=== PATIENT | female | born 1935 | race African-American/Black ===

== ENCOUNTER 2017-07-13 12:20 | Inpatient (IN) | payer MEDICARE ==
[~2017-07-13] VITALS: Ht 170.2 cm; Wt 61.0 kg
[~2017-07-13 12:20] MED LIST: ASPI81 PO; CARD240C6 PO; DYAZ37.52 PO; NAPR550 PO
[2017-07-13] MEDS ORDERED: SODIUM CHLOR 0.9% 1000 ML INJ 1,000 ML IV ONE ×2 (12:31→13:45)
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
[2017-07-13 13:01] VITALS: BP 164/86; PULSE 99; RESP 16; TEMP 98.1; O2SAT 98
[2017-07-13 13:10] LABS: AUTOMATED NEUTROPHIL # 9.1 TH/MM3 (1.8-7.7); BASOPHIL % 0.3 % (0.0-2.0); EOSINOPHIL % 0.1 % (0.0-4.0); HEMO FLAGS DIFF FINAL; LYMPH % 11.2 % (9.0-44.0); LYMPHOCYTE # 1.2 TH/MM3 (1.0-4.8); MEAN CELL VOLUME 81.3 FL (80.0-100.0); MEAN CORPUSCULAR HEMOGLOBIN 26.4 PG (27.0-34.0); MEAN CORPUSCULAR HGB CONC 32.4 % (32.0-36.0); MONO % 6.9 % (0.0-8.0); NEUT % 81.5 % (16.0-70.0); PLATELET COUNT 245 TH/MM3 (150-450); RED BLOOD COUNT 5.54 MIL/MM3 (4.00-5.30); RED CELL DISTRIBUTION WIDTH 15.2 % (11.6-17.2); WHITE BLOOD COUNT 11.1 TH/MM3 (4.0-11.0)
--- NOTE | 2017-07-13 13:17 | RADRPT ---
EXAM DATE/TIME: 07/13/2017 12:58 [facility] COMPARISON: No previous studies available for comparison. INDICATIONS : Altered mental status for one day. RADIATION DOSE: 45.79 CTDIvol (mGy) MEDICAL HISTORY : Hypertension. SURGICAL HISTORY : Hysterectomy. ENCOUNTER: Initial ACUITY: 1 day PAIN SCALE: 3/10 LOCATION: Bilateral cranial TECHNIQUE: Multiple contiguous axial images were obtained of the head. Using automated exposure control and adj ustment of the mA and/or kV according to patient size, radiation dose was kept as low as reasonably a chievable to obtain optimal diagnostic quality images. DICOM format image data is available electro nically for review and comparison. FINDINGS: CEREBRUM: The ventricles are normal for age. No evidence of midline shift, mass lesion, hemorrhage or acute in farction. No extra-axial fluid collections are seen. POSTERIOR FOSSA: The cerebellum and brainstem are intact. The 4th ventricle is midline. The cerebellopontine angle i s unremarkable. EXTRACRANIAL: The visualized portion of the orbits is intact. SKULL: The calvaria is intact. No evidence of skull fracture. CONCLUSION: Normal examination for a patient of this age. Dl Ceron MD on July 13, 2017 at 13:14 Board Certified Radiologist. This report was verified electronically.
--- NOTE | 2017-07-13 13:23 | RADRPT ---
EXAM DATE/TIME: 07/13/2017 12:46 [facility] COMPARISON: No previous studies available for comparison. INDICATIONS : Fever and cough. MEDICAL HISTORY : None. SURGICAL HISTORY : None. ENCOUNTER: Initial ACUITY: 1 day PAIN SCORE: Non-responsive. LOCATION: Bilateral chest FINDINGS: A single view of the chest demonstrates the lungs to be symmetrically aerated without evidence of mas s, infiltrate or effusion. The cardiomediastinal contours are unremarkable. Osseous structures are intact. CONCLUSION: No acute disease. Dl Ceron MD on July 13, 2017 at 13:20 Board Certified Radiologist. This report was verified electronically.
[2017-07-13] MEDS ORDERED: MAXZTAB PO (13:31)
[2017-07-13] MEDS ORDERED: VERA120T3 PO (13:31)
[2017-07-13] MEDS ORDERED: LOVA20TA PO (13:31)
[2017-07-13 13:32] LABS: APTT (PATIENT) 22.6 SEC (24.3-30.1); INTERNATIONAL NORMALIZED RATIO 1.1 RATIO; PROTHROMBIN TIME - PATIENT 12.7 SEC (9.8-11.6)
[2017-07-13 14:37] LABS: ANION GAP 13 MEQ/L (5-15); AST (GOT) 49 U/L (15-37); BICARBONATE 23.8 MEQ/L (21.0-32.0); BLOOD UREA NITROGEN 73 MG/DL (7-18); CHLORIDE 116 MEQ/L (98-107); GLOMERULAR FILTRATION RATE 38 ML/MIN (>89); MAGNESIUM 2.7 MG/DL (1.5-2.5); SODIUM (NA) 153 MEQ/L (136-145)
[2017-07-13 14:38] LABS: POTASSIUM 4.4 MEQ/L (3.5-5.1)
[2017-07-13 14:52] LABS: ALKALINE PHOSPHATASE 86 U/L (45-117); ALT (GPT) 43 U/L (10-53); CREATINE KINASE 657 U/L (26-192); TOTAL BILIRUBIN ADULT 0.8 MG/DL (0.2-1.0)
[2017-07-13 15:05] LABS: LACTIC ACID GHOST NOT REPORTABLE
[2017-07-13 15:05] LABS: CKMB 10.2 NG/ML (0.5-3.6)
[2017-07-13 15:13] LABS: BLOOD, URINE NEG (NEG); GLUCOSE,URINE NEG (NEG); HYALINE CAST, URINE 18 /lpf (RARE); KETONE, URINE 10 mg/dL (NEG); MUCUS URINE FEW /lpf (OCC); NITRITE,URINE NEG (NEG); SQUAMOUS EPITHELIAL CELL URINE 1 /hpf (0-5); URINE COLOR YELLOW (YELLW/STRAW)
[2017-07-13 15:16] LABS: COMMENT (UR) CATH-CULT NOT IND; CULTURE IF INDICATED CATH CULTURE NOT IND
[2017-07-13 15:32] VITALS: BP 145/62; PULSE 95; RESP 18; O2SAT 97
--- NOTE | 2017-07-13 18:51 | RADRPT ---
EXAM DATE/TIME: 07/13/2017 18:00 [facility] COMPARISON: CT BRAIN W/O CONTRAST, July 13, 2017, 12:58. INDICATIONS : Altered mental status. MEDICAL HISTORY : Hypertension. SURGICAL HISTORY : Total knee replacement, right. Appendectomy. Hysterectomy. ENCOUNTER: Initial ACUITY: 1 day PAIN SCORE: 0/10 LOCATION: cranial TECHNIQUE: Multiplanar, multisequence MRI of the brain was performed without contrast. FINDINGS: CEREBRUM: The ventricles, sulci, and basal cisterns are prominent, characteristic of moderate central cortical atrophy.. No evidence of midline shift, mass lesion, hemorrhage or acute infarction. No extraaxial fluid collections are seen. The pituitary gland and suprasellar cistern are normal in configuration. WHITE MATTER: No significant signal abnormalities are seen in the white matter. POSTERIOR FOSSA: The cerebellum and brainstem are intact. The 4th ventricle is midline. The cerebellopontine angle is unremarkable. The cerebellar tonsils are normal in position. There is soft tissue thickening poste rior to the dens and the anterior arch of C1 is not identified, but this level is only included on sa gittal images. DIFFUSION IMAGING: No focal areas of restricted diffusion are seen. No evidence of acute infarction. EXTRACRANIAL: The visualized portions of the orbits and paranasal sinuses are unremarkable. CONCLUSION: 1. Moderate central and cortical atrophy. No evidence of acute stroke or hemorrhage. 2. Soft tissue thickening posterior to the dens which narrows the spinal canal, but does not cause co rd compression. Recommend further evaluation of the C1 and C2 level with thin section CT. Steven Licea MD on July 13, 2017 at 18:46 Board Certified Radiologist. This report was verified electronically.
[2017-07-13 20:00] VITALS: BP 116/60; PULSE 106; RESP 17; TEMP 98.3; O2SAT 97
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
[2017-07-13] MEDS ORDERED: SODIUM CHLOR 0.9% 1000 ML INJ 1,000 ML IV SCH (22:30)
--- NOTE | 2017-07-13 23:39 | EKG ---
Date Performed: 07/13/2017 Time Performed: 14:17:46 PTAGE: 81 years EKG: Sinus rhythm NONSPECIFIC T-WAVE ABNORMALITY BORDERLINE ECG PREVIOUS TRACING : 07/13/2017 14.16 Compared to prior tracing no significant change DOCTOR: Xiang Parikh Interpretating Date/Time 07/16/2017 06:51:51
--- NOTE | 2017-07-13 23:51 | RADRPT ---
EXAM DATE/TIME: 07/13/2017 23:27 [facility] COMPARISON: No previous studies available for comparison. INDICATIONS : Trauma; fall. Contusion of left side of face. RADIATION DOSE: 41.45 CTDIvol (mGy) MEDICAL HISTORY : Hypertension. Gastroesophageal reflux disease. SURGICAL HISTORY : Hysterectomy. ENCOUNTER: Initial ACUITY: 1 day PAIN SCORE: 4/10 LOCATION: facial TECHNIQUE: Volumetric scanning of the facial bones was performed. Using automated exposure control and adjustme nt of the mA and/or kV according to patient size, radiation dose was kept as low as reasonably achiev able to obtain optimal diagnostic quality images. DICOM format image data is available electronicall y for review and comparison. FINDINGS: ORBITS: The orbital and infraorbital osseous structures are intact. The retroconal structures have a normal configuration. No radiopaque foreign bodies are seen. NASAL BONE: The nasal bone and maxillary spine are intact ZYGOMATIC ARCHES: Symmetric without evidence of fracture. SINUSES: The maxillary, ethmoid and frontal sinuses are intact. No air-fluid levels seen. There is opacificat ion of multiple ethmoid air cells. NASAL CAVITY: The nasal septum is intact and midline. The lacrimal ducts are intact. SOFT TISSUES: No radiopaque foreign bodies seen. There is mild soft tissue swelling of the left side of the face. INTRACRANIAL: No intracranial air seen. CRIBIFORM PLATE: Grossly intact. CONCLUSION: 1. Mild soft tissue swelling of left side of the face with no acute fracture or malalignment. 2. Opacification of several ethmoidal air cells. Simone Hough MD on July 13, 2017 at 23:48 Board Certified Radiologist. This report was verified electronically.
[2017-07-14] VITALS (7 sets, daily range): BP systolic 124–147; BP diastolic 58–65; PULSE 75–88; RESP 16–20; TEMP 97.4–99.2; O2SAT 96–97
[2017-07-14 05:47] LABS: AUTOMATED NEUTROPHIL # 5.4 TH/MM3 (1.8-7.7); BASOPHIL % 0.3 % (0.0-2.0); EOSINOPHIL # 0.1 TH/MM3 (0-0.4); EOSINOPHIL % 0.8 % (0.0-4.0); HEMATOCRIT 34.6 % (35.0-46.0); HEMO FLAGS DIFF FINAL; LYMPH % 20.1 % (9.0-44.0); LYMPHOCYTE # 1.6 TH/MM3 (1.0-4.8); MEAN CELL VOLUME 82.3 FL (80.0-100.0); MEAN CORPUSCULAR HEMOGLOBIN 27.1 PG (27.0-34.0); MEAN CORPUSCULAR HGB CONC 32.9 % (32.0-36.0); MONO % 10.5 % (0.0-8.0); NEUT % 68.3 % (16.0-70.0); PLATELET COUNT 158 TH/MM3 (150-450); RED CELL DISTRIBUTION WIDTH 15.2 % (11.6-17.2); WHITE BLOOD COUNT 7.9 TH/MM3 (4.0-11.0)
[2017-07-14 06:22] LABS: ALKALINE PHOSPHATASE 74 U/L (45-117); ALT (GPT) 31 U/L (10-53); ANION GAP 11 MEQ/L (5-15); AST (GOT) 28 U/L (15-37); BICARBONATE 23.7 MEQ/L (21.0-32.0); BLOOD UREA NITROGEN 51 MG/DL (7-18); CHLORIDE 121 MEQ/L (98-107); CREATINE KINASE 434 U/L (26-192); GLOMERULAR FILTRATION RATE 66 ML/MIN (>89); POTASSIUM 3.2 MEQ/L (3.5-5.1); TOTAL BILIRUBIN ADULT 0.7 MG/DL (0.2-1.0)
[2017-07-14 06:26] LABS: SODIUM (NA) 156 MEQ/L (136-145)
[2017-07-14 06:45] LABS: CKMB 5.5 NG/ML (0.5-3.6)
[2017-07-14] MEDS: D5W + KCL 20 MEQ INJ 1,000 ML IV SCH ×3 (07:37→18:31)
[2017-07-14] MEDS: ACETAMINOPHEN 325 MG TAB PO PRN (13:15)
--- NOTE | 2017-07-14 13:47 | MB ---
cc: MICHEL HURTADO M.D. DATE OF CONSULTATION: 07/14/2017. REASON FOR CONSULTATION: Mental status change. HISTORY OF PRESENT ILLNESS: Ms. Garcia is a very pleasant 81-year-old woman normally functioning at a very high level. Her family was trying to reach her for several days by calling her and there was no response and they felt that was very unusual for her as she is usually very responsive. A neighbor came to her house therefore to check on her and found that she was on the floor in a sitting position. Fecal matter was noted throughout the home and the home was unkempt, which is very atypical for her. Her family member also states that she was concerned that somebody was trying to break into the house and thought she was having delusions as there was no evidence of any break-in or attempt to break in. She was brought to the hospital and found to be very dehydrated. She states that she has not been eating or drinking well for the past couple of weeks, although she denies nausea or vomiting. She has been treated with hydration per Dr. Mendieta and has demonstrated significant improvement in mental status. Her family states that EVAC was concerned that she might have had a small seizure when they attended to her initially as she had a staring episode but she has no prior history of seizures. PAST MEDICAL HISTORY: 1. She has a history of hypertension. 2. Hyperlipidemia. 3. Gastroesophageal reflux. ALLERGIES: 1. CODEINE. 2. MORPHINE. PAST SURGICAL HISTORY: 1. Hysterectomy. NEUROLOGICAL EXAMINATION: VITAL SIGNS: Blood pressure is 138/63, pulse 85, respiratory rate is 20, temperature is 98 degrees. HIGHER CORTICAL FUNCTIONS: At this time, she is alert and oriented x3 and recalls 0/3 objects in three minutes. She responds to questions appropriately. She does not appear confused. She can recognize all of her friends and family in the room. She can add numbers normally. There is no neglect. CRANIAL NERVES: Intact. MOTOR EXAM: No focal deficit with 5/5 strength throughout in both upper and lower extremities. There is no drift. REFLEXES: 2+ symmetric. IMAGING STUDIES: MRI of the brain is normal for age with moderate atrophy. No evidence of any acute changes. Soft tissue thickening noted posterior to the dens narrowing the spinal canal but no cord compression. Recommend further evaluation with a CT of C1 and C2 with thin sections. Maxillofacial CT negative. Brain CT normal for age. LABS: The sodium is 157, potassium 3.7, C02 23.7. The BUN is 51, creatinine is 0.98. GFR is 66. Glucose is 106. AST 28. ALT 31. Alkaline phosphatase 74. CPK 434. Albumin 2.6, which is low. Urinalysis: The pH is 5, specific gravity 1.022, 10 ketones identified, 2 WBCs and less than 1 RBC, 18 hyaline casts. PT is 12.7. INR 1.1. APTT 22.6. IMPRESSION: I suspect this is probably a metabolic encephalopathy from severe dehydration as she does seem to be improving. I would recommend an EEG to rule out the remote chance of seizure. The MRI suggest that there may be stenosis at the high cervical spine level; however, on exam today, I do not find any definite myelopathic features; however, I will proceed with CT scan with thin sections through C1 and C2 to be sure there is no cord compression. Thank you for asking me to see this nice patient. MD MAI Franco/ALESSANDRA /1:06 PM /1:44 PM
[2017-07-14 16:49] LABS: AUTOMATED NEUTROPHIL # 4.5 TH/MM3 (1.8-7.7); BASOPHIL % 0.3 % (0.0-2.0); EOSINOPHIL # 0.1 TH/MM3 (0-0.4); EOSINOPHIL % 1.2 % (0.0-4.0); HEMATOCRIT 30.5 % (35.0-46.0); HEMO FLAGS DIFF FINAL; LYMPH % 28.9 % (9.0-44.0); LYMPHOCYTE # 2.2 TH/MM3 (1.0-4.8); MEAN CELL VOLUME 81.9 FL (80.0-100.0); MEAN CORPUSCULAR HEMOGLOBIN 27.1 PG (27.0-34.0); NEUT % 59.6 % (16.0-70.0); PLATELET COUNT 129 TH/MM3 (150-450); RED BLOOD COUNT 3.72 MIL/MM3 (4.00-5.30); WHITE BLOOD COUNT 7.5 TH/MM3 (4.0-11.0)
[2017-07-14 17:07] LABS: POTASSIUM 3.4 MEQ/L (3.5-5.1)
--- NOTE | 2017-07-14 18:09 | RADRPT ---
EXAM DATE/TIME: 07/14/2017 16:18 [facility] COMPARISON: No previous studies available for comparison. INDICATIONS : Syncope. MEDICAL HISTORY : Hypercholesterolemia. Hypertension. Gastroesophageal reflux disease. Alcohol use. SURGICAL HISTORY : Hysterectomy. Right knee replacement. ENCOUNTER: Initial ACUITY: 1 day PAIN SCORE: 0/10 LOCATION: Bilateral neck PEAK SYSTOLIC VELOCITIES (cm/sec): ICA/CCA RATIO: Right: 1.3 Left: 1.0 ICA: Right: 128 Left: 88 CCA: Right: 97 Left: 91 ECA: Right: 116 Left: 91 VERTEBRAL: Right: 72 antegrade Left: 44 antegrade Elevated flow velocities and ICA/CCA ratios have been found to correlate with increased degrees of vessel stenosis, calculated as percentage of diameter relative to a normal segment of distal ICA/CCA FINDINGS: RIGHT CAROTID: No significant stenosis is visualized. The waveforms are within normal limits. LEFT CAROTID: No significant stenosis is visualized. The waveforms are within normal limits. VERTEBRAL ARTERIES: Antegrade flow is seen in both vertebral arteries. MISCELLANEOUS: None. CONCLUSION: 1. Mild to moderate visible plaque formation in the carotid arteries bilaterally without hemodynamica lly significant stenosis. Dl Ceron MD on July 14, 2017 at 18:07 Board Certified Radiologist. This report was verified electronically.
--- NOTE | 2017-07-14 21:03 | EKG ---
Date Performed: 07/14/2017 Time Performed: 15:03:07 PTAGE: 81 years EKG: Sinus rhythm WITH SHORT VT INTERVAL NONSPECIFIC T-WAVE ABNORMALITY BORDERLINE ECG PREVIOUS TRACING : 07/13/2017 14.17 No significant change from previous tracing noted. DOCTOR: Rafael Farfan Interpretating Date/Time 07/14/2017 21:01:20
--- NOTE | 2017-07-14 21:07 | HHI.PR ---
Subjective Remarks She is much more alert with good orientation. She was seen by Neurology and work up continues with regard to further assessment of her status for any neurologic deficit or seizure activity. She appears to be doing better after hydration and electrolyte correction. There appears to be good tolerance to the current interventions. Objective - Vital Signs Date Time Temp Pulse Resp B/P (MAP) Pulse Ox O2 Delivery O2 Flow Rate FiO2 07/14/17 20:20 99.2 83 17 130/63 (85) 97 07/14/17 16:24 98.5 75 20 124/60 (81) 97 07/14/17 11:51 98.4 85 20 138/63 (88) 97 07/14/17 08:11 98.2 88 20 126/58 (80) 96 07/14/17 08:10 79 07/14/17 04:00 98.1 87 17 147/65 (92) 96 07/14/17 00:00 97.4 86 16 143/65 (91) 97 I/O 07/13/17 07/13/17 07/13/17 07/14/17 07/14/17 07/14/17 07:00 15:00 23:00 07:00 15:00 23:00 Intake Total 1000 ml 1000 ml 720 ml 733 ml 1660 ml Output Total 400 ml 550 ml Balance 1000 ml 1000 ml 320 ml 733 ml 1110 ml Intake Oral 720 ml 660 ml IV Total 1000 ml 1000 ml 733 ml 1000 ml Output Urine Total 400 ml 550 ml Result Diagram: 07/14/17 1615 07/14/17 1615 Objective Remarks GENERAL: Alert and Oriented X 3. SKIN: Warm and dry. HEAD: Normocephalic. Atraumatic. EYES: No scleral icterus. No injection or drainage. NECK: Supple, trachea midline. No JVD or lymphadenopathy. CARDIOVASCULAR: Regular rate and rhythm without murmurs, gallops, or rubs. RESPIRATORY: Breath sounds equal bilaterally. No accessory muscle use. GASTROINTESTINAL: Abdomen is soft, non-tender and nondistended. MUSCULOSKELETAL: No cyanosis or edema. BACK: Nontender without obvious deformity. No CVA tenderness. NEURO: No focal deficits to exam. A/P Assessment and Plan ASSESSMENT 1. Altered Mental Status-resolved. 2. Possible Acute Neurologic Deficit. 3. Acute Kidney Injury-improved. 4. Severe Dehydration-improving. 5. History of Hypertension. 6. History of Hyperlipidemia. 7. History of Gastroesophageal Reflux Disease. PLAN 1. EEG study is pending. 2. Massive intravenous hydration continues. 3. Close monitoring of the intake and output. 4. CT Scan of the Cervical Spine is pending. 5. Neurology continues to follow. 6. Follow up laboratory assessment. 7. DVT, PE and PUD prophylaxis. Cristian Mendieta MD Jul 14, 2017 21:07
[2017-07-14] MEDS: D5-NS + KCL 20 MEQ INJ 1,000 ML IV SCH (21:45)
[2017-07-15 00:04] VITALS: BP 129/60; PULSE 84; RESP 17; TEMP 99.3; O2SAT 97
[2017-07-15 07:13] LABS: AUTOMATED NEUTROPHIL # 3.3 TH/MM3 (1.8-7.7); BASOPHIL % 0.4 % (0.0-2.0); EOSINOPHIL # 0.1 TH/MM3 (0-0.4); EOSINOPHIL % 1.6 % (0.0-4.0); HEMATOCRIT 29.3 % (35.0-46.0); HEMO FLAGS DIFF FINAL; LYMPH % 32.1 % (9.0-44.0); LYMPHOCYTE # 1.9 TH/MM3 (1.0-4.8); MEAN CELL VOLUME 80.8 FL (80.0-100.0); MEAN CORPUSCULAR HEMOGLOBIN 26.6 PG (27.0-34.0); MONO % 9.5 % (0.0-8.0); NEUT % 56.4 % (16.0-70.0); PLATELET COUNT 103 TH/MM3 (150-450); RED BLOOD COUNT 3.62 MIL/MM3 (4.00-5.30); RED CELL DISTRIBUTION WIDTH 14.9 % (11.6-17.2); WHITE BLOOD COUNT 5.9 TH/MM3 (4.0-11.0)
[2017-07-15] MEDS: D5-NS + KCL 20 MEQ INJ 1,000 ML IV SCH ×3 (07:16→17:10)
[2017-07-15] MEDS: ACETAMINOPHEN 325 MG TAB PO PRN (07:46)
[2017-07-15 07:56] LABS: POTASSIUM 3.6 MEQ/L (3.5-5.1)
[2017-07-15 08:00] VITALS: BP 129/58; PULSE 81; RESP 20; TEMP 98.1; O2SAT 97
[2017-07-15 09:13] VITALS: PULSE 78
--- NOTE | 2017-07-15 11:05 | RADRPT ---
EXAM DATE/TIME: 07/15/2017 10:25 [facility] COMPARISON: No previous studies available for comparison. INDICATIONS : Neck pain RADIATION DOSE: 34.09 CTDIvol (mGy) MEDICAL HISTORY : Hypertension. SURGICAL HISTORY : Hysterectomy. ENCOUNTER: Initial ACUITY: 1 day PAIN SCALE: 4/10 LOCATION: neck TECHNIQUE: Volumetric scanning of the cervical spine was performed. Multiplanar reconstructions in the sagittal, coronal and oblique axial planes were performed. Using automated exposure control and adjustment o f the mA and/or kV according to patient size, radiation dose was kept as low as reasonably achievable to obtain optimal diagnostic quality images. DICOM format image data is available electronically f or review and comparison. FINDINGS: VERTEBRAE: Normal vertebral body height. ALIGNMENT: No evidence of subluxation. C1-C2: Extensive degenerative changes at C1-C2 with moderate osteophyte formation and degenerative calcifica tions in appear the causing mild high cervical stenosis. MRI cervical spine may be of benefit. C2-C3: Facet degenerative changes without stenosis. C3-C4: Significant left-sided neural foramina encroachment from facet degenerative changes. There is no spi nal stenosis. C4-C5: Severe left-sided neuroforaminal encroachment from facet disease. Negative for spinal stenosis. C5-C6: Mildridging with minimal bilateral neural foramina encroachment. C6-C7: Moderate airspace ridging and mild bilateral neural foraminal encroachment without significant spinal stenosis. C7-T1: The bony spinal canal is normal in size. No evidence of disc bulge or herniation. The neural forami na are bilaterally patent. 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 MRI of cervical spine may o ffer more information. Wong Scales MD FACR on July 15, 2017 at 10:59 Board Certified Radiologist. This report was verified electronically.
[2017-07-15 12:36] VITALS: BP 142/66; PULSE 84; RESP 20; TEMP 98.5; O2SAT 97
--- NOTE | 2017-07-15 15:36 | HHI.PR ---
Review/Management Diagnosis metabolic encepalopathy from dehydration--improving No evidence for significant cervical stenosis or cord compression Diagnosis/Plan: Subjective Subjective Comments No acute events reported Patient feels her memory is improving and getting back to baseline Active Medications Current Medications Medications (Trade) Dose Ordered Sig/Rima Route Start Time Stop Time Status Last Admin (Tylenol) 650 mg Q4H PRN PO 07/14/17 13:15 07/15/17 07:46 Potassium Chloride/Dextrose/ Sod Cl 1,000 ml @ 100 mls/hr Q10H IV 07/14/17 21:45 07/15/17 10:45 Allergies Allergies Coded Allergies codeine (Unverified Allergy, Severe, 07/13/17) morphine (Unverified Allergy, Mild, RASH, 07/13/17) Exam I&O / VS 07/15/17 07/15/17 07/16/17 15:00 23:00 07:00 Intake Total 400 ml Balance 400 ml IV Total 400 ml Vital Signs Date Time Temp Pulse Resp B/P (MAP) Pulse Ox O2 Delivery O2 Flow Rate FiO2 07/15/17 12:36 98.5 84 20 142/66 (91) 97 07/15/17 09:13 78 07/15/17 08:00 98.1 81 20 129/58 (81) 97 07/15/17 00:04 99.3 84 17 129/60 (83) 97 07/14/17 20:20 99.2 83 17 130/63 (85) 97 07/14/17 16:24 98.5 75 20 124/60 (81) 97 Exam Comments alert, follow commands CN intact MOTOR 5/5 BUE and BLE Objective Radiology Results CT cervical spine--spondylosis C12 without significant stenosis Micro and Labs Laboratory Tests Test 07/14/17 16:15 07/15/17 06:50 White Blood Count 7.5 5.9 Red Blood Count 3.72 3.62 Hemoglobin 10.1 9.6 Hematocrit 30.5 29.3 Mean Corpuscular Volume 81.9 80.8 Mean Corpuscular Hemoglobin 27.1 26.6 Mean Corpuscular Hemoglobin Concent 33.0 33.0 Red Cell Distribution Width 15.0 14.9 Platelet Count 129 103 Mean Platelet Volume 8.8 7.8 Neutrophils (%) (Auto) 59.6 56.4 Lymphocytes (%) (Auto) 28.9 32.1 Monocytes (%) (Auto) 10.0 9.5 Eosinophils (%) (Auto) 1.2 1.6 Basophils (%) (Auto) 0.3 0.4 Neutrophils # (Auto) 4.5 3.3 Lymphocytes # (Auto) 2.2 1.9 Monocytes # (Auto) 0.7 0.6 Eosinophils # (Auto) 0.1 0.1 Basophils # (Auto) 0.0 0.0 CBC Comment DIFF FINAL DIFF FINAL Differential Comment Blood Urea Nitrogen 37 22 Creatinine 0.98 0.79 Random Glucose 142 126 Calcium Level 8.0 7.8 Sodium Level 146 146 Potassium Level 3.4 3.6 Chloride Level 113 115 Carbon Dioxide Level 25.0 26.0 Anion Gap 8 5 Estimat Glomerular Filtration Rate 66 84 Iron Level 60 Vitamin B12 Level 1566 Thyroid Stimulating Hormone 3rd Gen 1.070 Serum Osmolality 313 Date/Time Source Procedure Growth Status 07/13/17 12:55 Blood Peripheral Aerobic Blood Culture - Preliminary NO GROWTH IN 2 DAYS Resulted 07/13/17 12:55 Blood Peripheral Anaerobic Blood Culture - Preliminary NO GROWTH IN 2 DAYS Resulted Derian Paz PhD MD Jul 15, 2017 15:36
[2017-07-15 16:02] VITALS: BP 124/58; PULSE 90; RESP 20; TEMP 99.5; O2SAT 97
--- NOTE | 2017-07-15 16:27 | HHI.PR ---
Subjective Remarks She is currently lying in the bed with a visitor, her niece in the room also. She states that she is doing much better and is starting to feel stronger. Her appetite is reported as good. Objective - Vital Signs Date Time Temp Pulse Resp B/P (MAP) Pulse Ox O2 Delivery O2 Flow Rate FiO2 07/15/17 16:02 99.5 90 20 124/58 (80) 97 07/15/17 12:36 98.5 84 20 142/66 (91) 97 07/15/17 09:13 78 07/15/17 08:00 98.1 81 20 129/58 (81) 97 07/15/17 00:04 99.3 84 17 129/60 (83) 97 07/14/17 20:20 99.2 83 17 130/63 (85) 97 I/O 07/14/17 07/14/17 07/14/17 07/15/17 07/15/17 07/15/17 07:00 15:00 23:00 07:00 15:00 23:00 Intake Total 720 ml 733 ml 1660 ml 1227 ml 1120 ml Output Total 400 ml 550 ml 1225 ml Balance 320 ml 733 ml 1110 ml 2 ml 1120 ml Intake Oral 720 ml 660 ml 720 ml IV Total 733 ml 1000 ml 1227 ml 400 ml Output Urine Total 400 ml 550 ml 1225 ml # Voids 0 # Bowel Movements 2 Result Diagram: 07/15/17 0650 07/15/17 0650 Objective Remarks GENERAL: She is alert and her orientation is good today. SKIN: Warm and dry. Wounds of the buttocks are with with some phlegmon. HEAD: Normocephalic and atraumatic with small ecchymosis of the left face. EYES: No scleral icterus. No injection or drainage. NECK: Supple, trachea midline. No JVD or lymphadenopathy. CARDIOVASCULAR: Regular rate and rhythm with murmur appearing stable. There are no gallops or rubs. RESPIRATORY: Breath sounds equal bilaterally. No accessory muscle use. GASTROINTESTINAL: Abdomen soft, non-tender, nondistended. Bowel sounds are normal. MUSCULOSKELETAL: No cyanosis or edema. Pulses are at 3+/4+ to exam. BACK: Nontender without obvious deformity. No CVA tenderness. NEURO: She displays no focal motor deficits. A/P Assessment and Plan ASSESSMENT 1. Acute Metabolic Encephalopathy. 2. Altered Mental Status-resolved. 3. Possible Seizure Disorder. 4. Acute Kidney Injury-improved. 5. Severe Dehydration-improving. 6. Wounds of the Buttocks. 7. Hypertension. 8. Hyperlipidemia. 9. Gastroesophageal Reflux Disease. PLAN 1. EEG study results are pending. 2. Intravenous hydration continues. 3. Close monitoring of the intake and output. 4. Advance her activity with Physical Therapy. 5. Neurology continues to follow. 6. Consult to Wound Care. 7. Follow up laboratory assessment. 8. Discharge Planning. 9. DVT, PE and PUD prophylaxis. Cristian Mendieta MD Jul 15, 2017 16:27
--- NOTE | 2017-07-15 18:24 | PD.WCN.NOT ---
Wound Consult Description: Received consult from Doctor Mendieta for wound management of pressure ulcer to buttocks Communicated with: JEREL Lemos and call placed to Doctor Mendieta for orders Recommendation: Please cleanse wounds to L buttock, R buttock and gluteal cleft with normal saline only and pat dry. Apply Santyl ointment alex thickness just over open wound beds and cover with bordered gauze dressing or ABD and paper tape. Please apply skin prep before applying adhesive dressing or tape to skin.Change dressing daily Additional Information: Patient seen on for evaluation of pressure ulcer to buttock area.Patient reports wounds on buttock area are from a rug burn she received from scooting across the floor on her bottom trying to get back in bed after a fall at home. Patient able to turn with minimal assistance from DEAL ARCHITECT to L side. Removed bordered gauze dressing in place to reveal wounds to L buttock, R buttock and gluteal cleft. L buttock wound measures 9cm x 6cm x slough. Wound bed presents with ~40% yellow./ brown adherent slough and ~60% red clean non granulation tissue. Wound drainage is scant and sero-sanguinous without odor.Wound margins are irregular and poorly defined. Wound is not located on or near a rhett prominence and has and irregular shape. Wound is not pressure related. Gluteal cleft wound presents with 100% pink tissue.Wound measures 2cm x 1cm x ~< 0.1cm.Periwound is noted with jagged wound margins and partial thickness skin loss. Wound has no active drainage. Scant sero-sanguinous drainage that is without odor is noted to removed dressing.Periwound presents with small, scattered areas or partial thickness skin loss.Wound does not appear pressure related. R lateral buttock wound presents as 7 small wounds all measured as one wound. Wound measures 3cm x 5 cm x slough.Wounds presents with ~30% yellow adherent slough and ~70% pink tissue. Wounds have scant sero-sanguinous drainage that is without odor. Wounds have jagged poorly defined wound margins. Periwound presents with peeling skin.Wound does not appear pressure, but friction related. R medial buttock wound measures 2.6cm x 3cm x ~<0.1cm. Wound bed presents wit 100% pink tissue. Wound does not have active drainage or odor. Cleansed all wounds with normal saline and pat dry. Applied skin prep to periwound and covered wounds with bordered gauze. Wound care recommendations are noted above. Sharyn Neri [facility] Jul 15, 2017 18:24
[2017-07-15 21:30] VITALS: BP 145/67; PULSE 85; RESP 18; TEMP 99; O2SAT 98
[2017-07-16] VITALS (7 sets, daily range): BP systolic 130–171; BP diastolic 65–72; PULSE 74–116; RESP 17–23; TEMP 98.3–100; O2SAT 97–99
[2017-07-16] MEDS: D5-NS + KCL 20 MEQ INJ 1,000 ML IV SCH (06:25)
[2017-07-16 08:43] LABS: AUTOMATED NEUTROPHIL # 3.4 TH/MM3 (1.8-7.7); BASOPHIL % 0.5 % (0.0-2.0); EOSINOPHIL # 0.1 TH/MM3 (0-0.4); EOSINOPHIL % 1.7 % (0.0-4.0); HEMATOCRIT 32.6 % (35.0-46.0); LYMPHOCYTE # 1.7 TH/MM3 (1.0-4.8); MEAN CELL VOLUME 80.8 FL (80.0-100.0); MEAN CORPUSCULAR HGB CONC 33.4 % (32.0-36.0); MONO % 8.5 % (0.0-8.0); NEUT % 60.3 % (16.0-70.0); PLATELET COUNT 94 TH/MM3 (150-450); RED BLOOD COUNT 4.03 MIL/MM3 (4.00-5.30); RED CELL DISTRIBUTION WIDTH 14.9 % (11.6-17.2); WHITE BLOOD COUNT 5.7 TH/MM3 (4.0-11.0)
[2017-07-16 08:53] LABS: HEMO FLAGS AUTO DIFF
[2017-07-16 09:12] LABS: BICARBONATE 27.7 MEQ/L (21.0-32.0); MAGNESIUM 1.6 MG/DL (1.5-2.5); POTASSIUM 3.7 MEQ/L (3.5-5.1)
[2017-07-16 09:34] LABS: OVALOCYTES 1+ (NORMAL); PLATELET ESTIMATE SMEAR LOW (NORMAL); PLATELET MORPHOLOGY NORMAL (NORMAL); SCAN/DIFF AUTO DIFF CONFIRMED
[2017-07-16] MEDS: MAGNESIUM SULFATE 1 GM PREMIX 100 ML IV SCH ×2 (13:22→14:12)
[2017-07-16] MEDS ORDERED: amLODIPine BESYLATE 5 MG TAB PO ONE (14:00)
[2017-07-16] MEDS ORDERED: COLLAGENASE OINT 30 GM TUBE TOPICAL SCH (16:30)
--- NOTE | 2017-07-16 19:03 | HHI.PR ---
Subjective Remarks She is doing well according to reports by her Nurse. She is trying to do well for oral intake of food and drink. She is also tolerating the medication regimen well. She is also working well with the Therapists. Objective - Vital Signs Date Time Temp Pulse Resp B/P (MAP) Pulse Ox O2 Delivery O2 Flow Rate FiO2 07/16/17 16:43 98.5 116 17 147/71 (96) 98 07/16/17 11:51 98.3 78 17 171/72 (105) 99 07/16/17 09:41 75 07/16/17 08:32 98.4 74 17 166/71 (102) 98 07/16/17 04:45 98.6 80 19 140/67 (91) 97 07/16/17 00:15 98.8 88 23 130/65 (86) 98 07/15/17 21:30 99.0 85 18 145/67 (93) 98 I/O 07/15/17 07/15/17 07/15/17 07/16/17 07/16/17 07/16/17 07:00 15:00 23:00 07:00 15:00 23:00 Intake Total 1227 ml 1120 ml 550 ml 100 ml 340 ml 100 ml Output Total 1225 ml Balance 2 ml 1120 ml 550 ml 100 ml 340 ml 100 ml Intake Oral 720 ml 550 ml 100 ml 240 ml IV Total 1227 ml 400 ml 100 ml 100 ml Output Urine Total 1225 ml # Voids 0 2 2 2 1 # Bowel Movements 2 3 2 1 Result Diagram: 07/16/17 0746 07/16/17745 Objective Remarks GENERAL: She continues very alert and without and new adverse changes. SKIN: Warm and dry. Wounds of the buttocks are bandaged. HEAD: Normocephalic. No other acute process. EYES: No scleral icterus. No injection or drainage. NECK: Supple, trachea midline. No JVD or lymphadenopathy. CARDIOVASCULAR: Regular rate and rhythm without murmurs, gallops, or rubs. RESPIRATORY: Breath sounds equal bilaterally. No accessory muscle use. GASTROINTESTINAL: Abdomen soft, non-tender, nondistended. MUSCULOSKELETAL: No cyanosis, or edema. BACK: Nontender without obvious deformity. No CVA tenderness. NEURO: No focal deficits. A/P Assessment and Plan ASSESSMENT 1. Acute Metabolic Encephalopathy-resolved. 2. Altered Mental Status-resolved. 3. Possible Seizure Disorder-Unlikely. 4. Acute Kidney Injury-improved. 5. Severe Dehydration-improving. 6. Wounds of the Buttocks-under treatment. 7. Hypertension. 8. Hyperlipidemia. 9. Gastroesophageal Reflux Disease. PLAN 1. EEG study results are still pending. 2. Discontinue intravenous hydration. 3. Close monitoring of the intake and output. 4. Continue her activity with Physical Therapy. 5. Neurology gave disposition in phone call to me today. 6. Wound Care recommendations for treatment are implemented. 7. Follow up laboratory assessment. 8. Discharge Planning to go to a Rehab Center. 9. DVT, PE and PUD prophylaxis. Cristian Mendieta MD Jul 16, 2017 19:03
[2017-07-16] MEDS: VERAPAMIL HCL 120 MG TAB PO SCH (21:07)
[2017-07-16 22:06] LABS: HEMATOCRIT 31.5 % (35.0-46.0); MEAN CELL VOLUME 81.3 FL (80.0-100.0); MEAN CORPUSCULAR HEMOGLOBIN 27.1 PG (27.0-34.0); MEAN CORPUSCULAR HGB CONC 33.3 % (32.0-36.0); PLATELET COUNT 96 TH/MM3 (150-450); RED BLOOD COUNT 3.87 MIL/MM3 (4.00-5.30); RED CELL DISTRIBUTION WIDTH 14.9 % (11.6-17.2)
[2017-07-16 22:09] LABS: REVIEW FLAG FINAL
[2017-07-16 22:41] LABS: BICARBONATE 26.6 MEQ/L (21.0-32.0); MAGNESIUM 1.8 MG/DL (1.5-2.5); POTASSIUM 4.1 MEQ/L (3.5-5.1)
[2017-07-17] VITALS (8 sets, daily range): BP systolic 128–153; BP diastolic 60–69; PULSE 76–89; RESP 17–20; TEMP 98.3–99.3; O2SAT 97–99
[2017-07-17] MEDS ORDERED: PRAVASTATIN SOD 20 MG TAB PO SCH (09:00)
[2017-07-17] MEDS: VERAPAMIL HCL 120 MG TAB PO SCH (09:14)
--- NOTE | 2017-07-17 13:49 | HHI.PR ---
Subjective Remarks The patient is looking well today without any report of any new negative findings. Vital signs are stable. Oral intake is reported as good. Discharge planning is being done as per the caser shoe parts. Objective - Vital Signs Date Time Temp Pulse Resp B/P (MAP) Pulse Ox O2 Delivery O2 Flow Rate FiO2 07/17/17 13:00 76 07/17/17 12:02 98.3 83 17 134/60 (84) 99 07/17/17 09:30 79 07/17/17 08:57 99.1 81 17 128/62 (84) 99 07/17/17 04:45 99.1 88 20 132/66 (88) 98 07/17/17 00:15 99.0 89 20 135/67 (89) 97 07/16/17 20:40 100.0 95 18 142/65 (90) 98 07/16/17 16:43 98.5 116 17 147/71 (96) 98 I/O 07/16/17 07/16/17 07/16/17 07/17/17 07/17/17 07/17/17 07:00 15:00 23:00 07:00 15:00 23:00 Intake Total 100 ml 340 ml 900 ml 1425 ml Balance 100 ml 340 ml 900 ml 1425 ml Intake Oral 100 ml 240 ml 800 ml 425 ml IV Total 100 ml 100 ml 1000 ml # Voids 2 2 3 6 # Bowel Movements 2 1 0 0 Result Diagram: 07/16/17210607/16/172106 Objective Remarks GENERAL: Alert and well oriented. SKIN: Warm and dry. HEAD: Normocephalic. EYES: No scleral icterus. No injection or drainage. NECK: Supple, trachea midline. No JVD or lymphadenopathy. CARDIOVASCULAR: Regular rate and rhythm without murmurs, gallops, or rubs. RESPIRATORY: Breath sounds equal bilaterally. No accessory muscle use. GASTROINTESTINAL: Abdomen soft, non-tender, nondistended. MUSCULOSKELETAL: No cyanosis, or edema. Mildly tender at the right knee. Pulses are normal. BACK: Nontender without obvious deformity. No CVA tenderness. NEURO: No focal deficits to exam. A/P Assessment and Plan ASSESSMENT 1. Acute Metabolic Encephalopathy-resolved. 2. Altered Mental Status-resolved. 3. Possible Seizure Disorder-Unlikely. 4. Acute Kidney Injury-improved. 5. Severe Dehydration-improving. 6. Wounds of the Buttocks-under treatment. 7. Hypertension. 8. Hyperlipidemia. 9. Gastroesophageal Reflux Disease. MEDICALLY STABLE PLAN 1. EEG study to have Neurology disposition. 2. Close monitoring of the intake and output. 3. Continue her activity with Physical Therapy. 4. Wound Care recommendations for treatment are implemented. 5. Follow up laboratory assessment. 6. Discharge Planning to go to a Rehab Center. 7. DVT, PE and PUD prophylaxis. OKAY FOR DISCHAARGE TODAY Cristian Mendieta MD Jul 17, 2017 13:49
[2017-07-17] MEDS ORDERED: COLL30T TOPICAL (14:04)
[2017-07-17] MEDS ORDERED: COLCHICINE 0.6 MG TAB PO ONE (14:15)
[2017-07-17] MEDS ORDERED: DICLOFENAC SODIUM 50 MG DELAYED RELEASE TAB PO ONE (14:15)
[2017-07-17] MEDS ORDERED: DEXAMETHASONE SOD PHOS 20 MG/5 ML VIAL IV PUSH ONE (14:30)
[2017-07-17 16:57] LABS: AUTOMATED NEUTROPHIL # 6.4 TH/MM3 (1.8-7.7); BASOPHIL % 0.3 % (0.0-2.0); EOSINOPHIL # 0.1 TH/MM3 (0-0.4); EOSINOPHIL % 0.7 % (0.0-4.0); HEMATOCRIT 31.4 % (35.0-46.0); HEMO FLAGS DIFF FINAL; LYMPH % 12.2 % (9.0-44.0); MEAN CELL VOLUME 81.1 FL (80.0-100.0); MEAN CORPUSCULAR HEMOGLOBIN 26.7 PG (27.0-34.0); MEAN CORPUSCULAR HGB CONC 32.9 % (32.0-36.0); MONO % 4.1 % (0.0-8.0); NEUT % 82.7 % (16.0-70.0); PLATELET COUNT 104 TH/MM3 (150-450); RED BLOOD COUNT 3.87 MIL/MM3 (4.00-5.30); RED CELL DISTRIBUTION WIDTH 15.1 % (11.6-17.2); WHITE BLOOD COUNT 7.8 TH/MM3 (4.0-11.0)
[2017-07-18] MEDS ORDERED: PRAVASTATIN SOD 20 MG TAB PO SCH (21:00)
== END 2017-07-17 18:44 | DRG 682 ==
LOC: NEPE 12:20 → NEDA 16:04 → N05B 18:29
PROVIDERS: ADMIT Internal Medicine; ATTEND Internal Medicine
DX: N17.9 Acute kidney failure, unspecified (principal); G93.41 Metabolic encephalopathy; E87.2 Acidosis; E86.0 Dehydration; I10 Essential (primary) hypertension; E55.9 Vitamin D deficiency, unspecified; D64.9 Anemia, unspecified; S00.83XA Contusion of other part of head, initial encounter; E78.5 Hyperlipidemia, unspecified; K21.9 Gastro-esophageal reflux disease without esophagitis; I87.2 Venous insufficiency (chronic) (peripheral); I83.90 Asymptomatic varicose veins of unspecified lower extremity; G56.02 Carpal tunnel syndrome, left upper limb; M19.90 Unspecified osteoarthritis, unspecified site; W19.XXXA Unspecified fall, initial encounter; Z88.5 Allergy status to narcotic agent; Z96.651 Presence of right artificial knee joint
CPT/HCPCS: 70450; 70486; 70551; 71010; 72125; 76937; 80048; 80053; 81001; 82550; 82552; 82607; 83540; 83605; 83735; 83930; 84443; 84484; 84550; 85025; 85027; 85610; 85652; 85730; 87040; 93005; 93880; 95819; 96360; 96361; J1100; J3475; J3480; J7030